=== PATIENT | male | born 1970 | race Caucasian/White ===

== ENCOUNTER 2020-02-21 10:22 | Day surgery (SDC) | payer BC ==
[~2020-02-21 10:22] MED LIST: Cefuroxime 10 MG/ML SYRINGE EYERT SCH; Lidocaine 1% PF 2 ML SDV INJECT SCH; Pilocarpine 4% Ophth Soln 15 ML Bot EYERT SCH
[2020-02-21] MEDS: Polymyxin B/Trimethoprim 10 ML Bottle EYERT SCH ×3 (10:48→12:47)
[2020-02-21] MEDS: Brimonidine 0.2% Ophth Soln 5 ML Bottle EYERT SCH ×3 (10:52→12:47)
[2020-02-21] MEDS: Phenylephrine 2.5% Ophth Soln 2 ML Bot EYERT SCH ×5 (10:58→12:31)
[2020-02-21] MEDS: Tropicamide 1% Ophth Soln 15 ML Bottle EYERT SCH ×4 (11:06→11:56)
--- NOTE | 2020-02-21 11:21 | PCM.PREANE ---
Preanesthetic Assessment - Anesthesia/Transfusion/Family Hx Anesthesia History: Prior Anesthesia Without Reaction Type of Anesthesia Reaction: Excessive Somnolence Family History of Anesthesia Reaction: No Transfusion History: No Prior Transfusion(s) Intubation History: Unknown - Review of Systems General: No Symptoms Pulmonary: No Symptoms (Smoker: 1ppd times 25 yrs, ETOH: occasionally) Cardiovascular: No Symptoms Gastrointestinal: No Symptoms Neurological: No Symptoms (patient states back is "out of whack." ), Tingling (Right hand) Other: Reports: None - Physical Assessment NPO Status Date: 02/21/20 NPO Status Time: 08:30 (4 oz of water) Vital Signs: HR: 54 B/P: 122/70 Temp: 97.9 Resp: 16 Sat: 99% Height: 1.8 m Weight: 83.915 kg ASA Class: 2 Mental Status: Alert & Oriented x3 Airway Class: Mallampati = 2 Dentition: Reports: Normal Dentition, Caries Thyro-Mental Finger Breadths: 3 Mouth Opening Finger Breadths: 3 ROM/Head Extension: Full Lungs: Clear to Auscultation, Normal Respiratory Effort Cardiovascular: Regular Rate, Regular Rhythm, No Murmurs - Allergies Allergies/Adverse Reactions: Allergies Allergy/AdvReac Type Severity Reaction Status Date / Time No Known Allergies Allergy Verified 02/20/20 11:08 - Anesthesia Plan Pre-Op Medication Ordered: None - Acknowledgements Anesthesia Type Planned: MAC Pt an Appropriate Candidate for the Planned Anesthesia: Yes Alternatives and Risks of Anesthesia Discussed w Pt/Guardian: Yes Pt/Guardian Understands and Agrees with Anesthesia Plan: Yes PreAnesthesia Questionnaire - Past Health History Medical/Surgical History: Denies Medical/Surgical History - HOME MEDS Home Medications: Home Meds . [No Known Home Meds] 02/20/20 [History] - CURRENT (IN HOUSE) MEDS Current Meds: Current Medications Brimonidine Tartrate (Alphagan 0.2% Ophth Soln) 0 ml EYERT ASDIRECTED SYLVIA Stop: 02/21/20 18:00 Last Admin: 02/21/20 10:52 Dose: 1 drop Documented by: Cefuroxime Sodium (Zinacef) 0 mg EYERT ASDIRECTED SYLVIA Stop: 02/21/20 18:00 Lidocaine HCl (Xylocaine-Mpf 1%) 0 ml INJECT ASDIRECTED SYLVIA Stop: 02/21/20 18:00 Phenylephrine HCl (Iker-Synephrine 2.5% Ophth Soln) 0 ml EYERT ASDIRECTED SYLVIA Stop: 02/21/20 18:00 Last Admin: 02/21/20 11:10 Dose: 1 drop Documented by: Pilocarpine HCl (Pilocar 4% Ophth Soln) 0 ml EYERT ASDIRECTED SYLVIA Stop: 02/21/20 18:00 Polymyxin/Trimethoprim Sulfate (Polytrim Ophth Soln) 0 ml EYERT ASDIRECTED SYLVIA Stop: 02/21/20 18:00 Last Admin: 02/21/20 10:48 Dose: 1 drop Documented by: Tetracaine HCl (Tetracaine 0.5% Steri-Unit Dianne) 0 ml EYEBOTH ASDIRECTED SYLVIA Stop: 02/21/20 18:00 Tropicamide (Mydriacyl 1% Ophth Soln) 0 ml EYERT ASDIRECTED SYLVIA Stop: 02/21/20 18:00 Last Admin: 02/21/20 11:06 Dose: 1 drop Documented by:
[2020-02-21] MEDS: Tetracaine HCl/PF 0.5% 4 ML Bottle EYEBOTH SCH ×2 (12:13→12:39)
--- NOTE | 2020-02-21 12:52 | PCM48HPAN ---
Post Anesthesia Note - EVALUATION WITHIN 48HRS OF ANESTHETIC Vital Signs in Normal Range: Yes Patient Participated in Evaluation: Yes Respiratory Function Stable: Yes Airway Patent: Yes Cardiovascular Function Stable: Yes Hydration Status Stable: Yes Pain Control Satisfactory: Yes Nausea and Vomiting Control Satisfactory: Yes Mental Status Recovered: Yes Vital Signs: Last Vital Signs BP:119/78 HR: 55 RR: 14 SpO2: 97
[2020-02-21 13:41] VITALS: BP 136/75; PULSE 51
== END 2020-02-21 13:02 | disposition home or self-care (01) ==
LOC: JD.SDS 10:22
PROVIDERS: ATTEND Ophthalmology
DX: H27.01 Aphakia, right eye (principal); F17.210 Nicotine dependence, cigarettes, uncomplicated
CPT/HCPCS: 66985; J0697; J2001